=== PATIENT | male | born 1960 | race Caucasian/White ===

== ENCOUNTER 2016-10-12 19:24 | Emergency (ER) | payer OTHER ==
[~2016-10-12] VITALS: Ht 193 cm; Wt 107.0 kg
[~2016-10-12 19:24] MED LIST: CATAFLAM50 MG PO; KEFLEX500 MG PO; NKHM
[2016-10-12] MEDS ORDERED: CEPHALEXIN500 M1 PO (21:23)
[2016-10-12] MEDS ORDERED: HYDROCODONE BIT1 T11 PO (21:23)
== END 2016-10-12 21:31 | disposition home or self-care (01) ==
LOC: ED 19:24
DX: S02.2XXB Fracture of nasal bones, initial encounter for open fracture (principal); F17.200 Nicotine dependence, unspecified, uncomplicated; W61 Contact with birds (domestic) (wild); Y93.89 Activity, other specified; Y92.413 State road as the place of occurrence of the external cause; Y99.9 Unspecified external cause status